=== PATIENT | male | born 1985 | race Caucasian/White ===

== ENCOUNTER 2023-08-03 13:47 | Emergency (ER) | payer BC, SELFPAY ==
[2023-08-03] MEDS: Proparacaine 0.5% Ophth Soln 15 ML Bottle EYERT ONE (14:36)
[2023-08-03] MEDS: Fluorescein 1 MG Ophth Strip EYERT ONE (15:10)
[2023-08-03] MEDS: Ketorolac 60 MG/2 ML SDV IM ONE (15:30)
[2023-08-03] MEDS: Acetaminophen/oxyCODONE 325-5 MG Tab PO ONE (15:34)
[2023-08-03] MEDS: Erythromycin Base 0.5% Ophth Oint 1 GM Tube EYERT ONE (15:35)
== END 2023-08-03 15:58 | disposition home or self-care (01) ==
LOC: JD.ED 13:47
DX: S05.01XA Injury of conjunctiva and corneal abrasion without foreign body, right eye, initial encounter (principal); H16.131 Photokeratitis, right eye; Z79.899 Other long term (current) drug therapy; Z88.6 Allergy status to analgesic agent; Z87.891 Personal history of nicotine dependence; W89.0XXA Exposure to welding light (arc), initial encounter; Y93.89 Activity, other specified
CPT/HCPCS: 96372; 99283; A9270-GY; J1885; J3490

== ENCOUNTER 2024-01-27 19:17 | Emergency (ER) | payer BC ==
[2024-01-27] MEDS: Ketorolac 60 MG/2 ML SDV IM ONE (21:02)
== END 2024-01-27 21:25 | disposition home or self-care (01) ==
LOC: JD.ED 19:17
DX: S20.212A Contusion of left front wall of thorax, initial encounter (principal); Z88.8 Allergy status to other drugs, medicaments and biological substances
CPT/HCPCS: 71101; 96372; 99283; J1885; 99282

== ENCOUNTER 2024-01-30 07:54 | Emergency (ER) | payer BC ==
[2024-01-30] MEDS: Ketorolac 60 MG/2 ML SDV IM ONE (08:29)
[2024-01-30] MEDS: Orphenadrine 100 MG Tab.ER PO ONE (08:30)
== END 2024-01-30 09:55 | disposition home or self-care (01) ==
LOC: JD.ED 07:54
DX: M62.838 Other muscle spasm (principal); Z88.6 Allergy status to analgesic agent; Z88.8 Allergy status to other drugs, medicaments and biological substances; Z79.899 Other long term (current) drug therapy
CPT/HCPCS: 96372; 99282; A9270; J1885; 99283

== ENCOUNTER 2024-08-15 06:32 | Emergency (ER) | payer BC ==
[2024-08-15] MEDS: EPINEPHrine 0.3 MG/0.3 ML Pen Autoinjector IM ONE (07:36)
[2024-08-15] MEDS: EPINEPHrine 1 MG/ML SDV IM ONE ×2 (07:40→09:02)
[2024-08-15] MEDS: diphenhydrAMINE 50 MG/ML SDV IV ONE (07:56)
[2024-08-15] MEDS: methylPREDNISolone Sodium Succinate 125 MG/2 ML SDV IVPUSH ONE (07:59)
[2024-08-15] MEDS: Sodium Chloride 0.9% 1,000 ML IV ONE (08:02)
== END 2024-08-15 13:00 | disposition home or self-care (01) ==
LOC: JD.ED 06:32
DX: K12.2 Cellulitis and abscess of mouth (principal); Z88.8 Allergy status to other drugs, medicaments and biological substances; Z79.899 Other long term (current) drug therapy
CPT/HCPCS: 96372; 96374; 96375; 99283-25; J0171; J1200; J2919; J7030